=== PATIENT | female | born 1970 | race Caucasian/White ===

== ENCOUNTER 2016-09-15 19:37 | Emergency (ER) | payer OTHER ==
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
[~2016-09-15 19:37] MED LIST: ACETAMINOPHEN PO; ALBUTEROL17 G1 IH; AMOXICILLIN PO; ANTIVERT PO; AUGMENTIN PO; BACLOFEN10 MG PO; BENZONATATE PO; CYMBALTA30 MG PO; DESYREL100 MG PO; FLEXERIL PO; FLEXERIL10 MG PO; KETOPROFEN PO; KLONOPIN1 MG PO; LEVOTHYROXINE50 MCG PO; LORTAB 5/500 TA1 TA2 PO; MEDROL PO; NASACORT AQ16.5 GM; SYNTHROID25 MCG PO; VICODIN 5/1 TAB 5/50 PO; VOLTAREN75 MG PO; ZITHROMAX1 G/PKT PO
== END 2016-09-15 22:40 | disposition home or self-care (01) ==
LOC: CED 19:37 → CFTX 19:37
DX: S16.1XXA Strain of muscle, fascia and tendon at neck level, initial encounter (principal); V49.40XA Driver injured in collision with unspecified motor vehicles in traffic accident, initial encounter; Y92.410 Unspecified street and highway as the place of occurrence of the external cause
CPT/HCPCS: 72040; 84703; 99283